=== PATIENT | male | born 2005 | race Caucasian/White ===

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

== ENCOUNTER 2024-01-28 11:17 | Outpatient (AMB) | payer OTHER, SELFPAY ==
--- NOTE | 2024-01-28 11:41 | A.OFFVIS_ITS ---
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 He was at [facility] and felt pain. X rays updated in the office today. 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. He describes a valgus twisting injury and a lateral patellar dislocation that required manual relocation. He has been unable to walk or move his knee normally since then. Physical Exam Extrem Other: Large left knee hemearthrosis with ttp over MPFL 5-40 deg motion Results Reviewed Results Reviewed: I personally reviewed relevant radiographs. Left knee effusion. Otherwise unremarkable radiographs Assessment & Plan Assessment & Plan (1) Closed patellar dislocation: Code(s): S83.006A - Unspecified dislocation of unspecified patella, initial encounter Plan: This is a 18 yo with a hemearthrosis s/p lateral patellar dislocation. I put him into a playmaker locked in extension and ordered PT. I recommend NSAIDS (800 mg ibuprofen) and an MRI. We will follow up accordingly. Orders: Orders XR knee standing BI Today M25.569 - Pain in unspecified knee MR knee LT wo con Today S83.006A - Unspecified dislocation of unspecified patella, initial encounter PT Evaluation and Treatment Today S83.006A - Unspecified dislocation of unspecified patella, initial encounter Coding Level of Care Code New Pt Level 4 (27005) Diagnoses Closed patellar dislocation S83.006A
== END 2024-01-28 12:30 | disposition home or self-care (01) ==
LOC: HO.HOS 11:17
PROVIDERS: PCP Pediatrics; Visit Provider Orthopaedic Surgery
DX: S83.002A Unspecified subluxation of left patella, initial encounter (principal)
CPT/HCPCS: 99203

== ENCOUNTER 2024-01-28 11:17 | Outpatient (REF) | payer OTHER, BC, SELFPAY ==
--- NOTE | ~2024-01-28 | XR_ITS ---
EXAMINATION: Left knee series including upright view of both knees. CLINICAL INFORMATION: Pain in the knee. COMPARISON: None available. TECHNIQUE: 3 views of the left knee including AP upright of both knees. FINDINGS: Left knee: The bones joints and soft tissues are normal without effusion. Right knee limited: The bones and visualized joints and soft tissues are normal.. XR/XR knee LT 3V IMPRESSION: LEFT KNEE: Normal. RIGHT KNEE limited: Normal.
== END 2024-01-28 11:18 | disposition home or self-care (01) ==
LOC: HO.HOSX 11:17
PROVIDERS: PCP Pediatrics; Visit Provider Orthopaedic Surgery
DX: S83.002A Unspecified subluxation of left patella, initial encounter (principal)
CPT/HCPCS: 73562

== ENCOUNTER 2024-02-16 12:54 | Outpatient (REF) | payer OTHER, SELFPAY ==
--- NOTE | ~2024-02-16 | MR_ITS ---
EXAMINATION: MR KNEE WITHOUT CONTRAST, LEFT CLINICAL INFORMATION: Left knee pain. Patellar dislocation. COMPARISON: Left knee radiographs dated 01/28/2024. TECHNIQUE: MRI of the knee without contrast was performed using routine sequences on a high-field scanner. FINDINGS: MENISCI: Medial Meniscus: Intact Lateral Meniscus: Intact LIGAMENTS: Cruciate: Intact Collateral: Heterogeneity and edema along the anterior aspect of the medial patellofemoral ligament, consistent with acute grade 2 sprain/partial tear. Intact fibular collateral ligament. EXTENSOR MECHANISM: Diffuse heterogeneity and irregularity throughout the medial patellofemoral ligament with thin ligament fibers remaining intact, consistent with acute grade 2 sprain/partial tear. Intact quadriceps and patellar tendons. TT-TG distance within normal limits. No patella jaylan. Patella currently well seated within the trochlea. Edema within the superolateral aspect of Hoffa's fat pad, which can be seen in the setting of patellar tendon lateral femoral condyle friction syndrome. ARTICULAR CARTILAGE/BONE: Patellofemoral Compartment: Cortical flattening at the medial border of the patella measuring up to 2 cm in craniocaudal dimension with underlying marrow edema, consistent with an impaction fracture. Intact articular cartilage. Marrow edema at the anterolateral aspect the lateral femoral condyle, consistent with osseous contusion. Medial Compartment: Intact articular cartilage. Focal marrow edema at the medial aspect of the medial femoral condyle, consistent with an osseous contusion. Lateral Compartment: Intact articular cartilage. JOINT FLUID AND BURSAE: Small joint effusion and trace Vargas's cyst. Fluid and edema within the pes anserine bursa which may be reactive to the adjacent pathology or indicate mild bursitis. MR/MR knee LT wo con IMPRESSION: 1. Findings consistent with prior lateral patellar dislocation including an impaction fracture at the medial border of the patella as well as osseous contusions at the anterolateral aspect of the lateral femoral condyle and medial aspect of the medial femoral condyle. Patella currently well seated within the trochlea. 2. Acute grade 2 sprain/partial tears of the medial patellofemoral and medial collateral ligaments. 3. Edema within the superolateral aspect of Hoffa's fat pad, which can be seen in the setting of patellar tendon lateral femoral condyle friction syndrome. 4. Small joint effusion and trace Vargas's cyst. Fluid and edema within the pes anserine bursa, which may be reactive to the adjacent pathology or indicate mild bursitis.
== END 2024-02-16 12:55 | disposition home or self-care (01) ==
LOC: HO.MRI 12:54
PROVIDERS: PCP Pediatrics; Visit Provider Orthopaedic Surgery
DX: M25.562 Pain in left knee (principal); S83.006A Unspecified dislocation of unspecified patella, initial encounter; X58.XXXA Exposure to other specified factors, initial encounter; Y93.9 Activity, unspecified; Y92.9 Unspecified place or not applicable; Y99.9 Unspecified external cause status
CPT/HCPCS: 73721

== ENCOUNTER 2024-02-16 14:19 | Outpatient (AMB) | payer OTHER, SELFPAY ==
--- NOTE | 2024-02-16 14:20 | A.OFFVIS_ITS ---
Intake Visit Reasons: ov- left knee pain Intake Note: John is a 18 year old male who presents today for a follow up on his left knee pain, DOI 01/27/24. Allergies No Known Allergies Allergy (Verified 08/22/23 09:31) HPI HPI ov- left knee pain: Details: John is feeling better now 3 weeks s/p patellar dislocation. He has not started PT yet. Physical Exam Extrem Other: lateral femoral condyle ttp mild effusion minimal apprehension stable kristie's Results Reviewed Results Reviewed: I personally reviewed the MR images. There is bony sequelae from a prior lateral patellar dislocation without loose b cheryl or cartilage defect. There is a partial tear of the MPFL. Insall/Salvati 1.54 Assessment & Plan Assessment & Plan (1) Closed patellar dislocation: Code(s): S83.006A - Unspecified dislocation of unspecified patella, initial encounter Category: Medical Plan: S/p Patellar dislocation, first time with mild Patella [place]. PT and a lateral bolster brace. Coding Level of Care Code Est Pt Level 3 (68789) Diagnoses Closed patellar dislocation S83.006A
== END 2024-02-16 15:19 | disposition home or self-care (01) ==
LOC: HO.HOS 14:19
PROVIDERS: PCP Pediatrics; Visit Provider Orthopaedic Surgery
DX: S83.005S Unspecified dislocation of left patella, sequela (principal)
CPT/HCPCS: 99213

== ENCOUNTER 2024-03-13 13:10 | Outpatient (AMB) | payer OTHER, SELFPAY ==
--- NOTE | 2024-03-13 13:11 | MHC.OFFVIS ---
Vital Signs 03/13/24 13:13 Height 5 ft 10 in Weight 154 lb BMI 22.1 Intake Visit Reasons: OV - Left Knee Intake Note: John is a 18 year old male who presents today for a follow up of his left knee, S/p Patellar dislocation 01/27/24, first time with mild Patella [place]. PT and a lateral bolster brace. Allergies No Known Allergies Allergy (Verified 08/22/23 09:31) HPI HPI OV - Left Knee: Details: 6 weeks s/p patellar dislocation. He is doing well with no complaints. He is jogging and not wearing brace. Physical Exam Vital Signs: BMI result Body Mass Index 22.1 Extrem Other: Left knee with full painless ROM and no effusion. No patellar instability or apprehension. Assessment & Plan Assessment & Plan (1) Closed patellar dislocation: Code(s): S83.006A - Unspecified dislocation of unspecified patella, initial encounter Category: Medical Plan: John may return to nl activity. I explained the risks associated with multiple dislocations but he does not appear to be unstable. [facility] the [facility]. he can return to work without restrictions. Coding Level of Care Code Est Pt Level 3 (05720) Diagnoses Closed patellar dislocation S83.006A
[2024-03-13 13:13] VITALS: BMI 22.1
== END 2024-03-13 13:27 | disposition home or self-care (01) ==
LOC: HO.HOS 13:10
PROVIDERS: PCP Pediatrics; Visit Provider Orthopaedic Surgery
DX: S83.006A Unspecified dislocation of unspecified patella, initial encounter (principal)
CPT/HCPCS: 99213

== ENCOUNTER → 2024-03-13 13:10 | Outpatient (BNVA) | payer OTHER, SELFPAY | PROVIDERS: PCP Pediatrics; Visit Provider Orthopaedic Surgery ==

== ENCOUNTER 2024-12-26 13:24 | Outpatient (REF) | payer OTHER, SELFPAY ==
--- NOTE | ~2024-12-26 | US_ITS ---
CLINICAL HISTORY: ELEVATED TESTOSTERONE US Scrotum with Doppler Comparison: None Findings: Right testicle normal echotexture, 4.3 x 2.4 x 2.9 cm. Left testicle normal echotexture, 4.7 x 2.5 x 3.4 cm. Color Doppler and arterial/venous spectral tracings of both testicles within normal limits. 4 mm right epididymal head cysts noted. Epididymides are otherwise unremarkable. No varicoceles. No hydroceles. IMPRESSION: Normal scrotal ultrasound. No evidence of torsion. This document has been electronically signed by: Chong Atkins MD, PHD on 12/28/2024 01:55:32
--- OUTSIDE RECORDS SUMMARY | 2024-12-26 16:49 | XMS_ITS ---
Author Name [facility] Organization Unknown Results Test Name/Text Value Interpretation Date Range Source WBC #/area UrnS HPF 0 Normal [id number] - [facility] Hgb Ur Ql Strip 09-18 Abnormal [id number] - [facility] Squamous UrnS Ql Micro 0 Normal [id number] - [facility] Ketones Ur Strip Negative Normal [id number] - [facility] Sp Gr Ur Strip 1.025 Normal [id number] 1.003 - 1.03 [facility] Bilirub Ur Ql Strip Negative Normal [id number] - [facility] Glucose Ur Ql Strip Negative Normal [id number] - [facility] pH Ur Strip 6 Normal [id number] 5 - 8 [facility] Clarity Ur Clear Normal [id number] [facility] C Hgb Ur Ql Strip Moderate Abnormal [id number] - [facility] Nitrite Ur Ql Strip Negative Normal [id number] - [facility] Urobilinogen Ur Strip 0.2E.U./dL Normal [id number] 0.2 - 1 [facility] Prot Ur Ql Strip Negative Normal [id number] - [facility] Leukocyte esterase Ur Ql Strip Negative Normal [id number] - [facility] Color Ur Yellow Normal [id number] [facility] POCT URINE AUTO LOT [id number] Normal [id number] [facility] Problems Problem Status Onset Date Problem Type Date of Resoluti on Source Suspected COVID-19 active 2021-09-26 ProblemAct [facility] Tonsil asymmetry active 2024-09-11 ProblemAct [facility] Gross hematuria active EncounterDiagnosisAct [facility] Ahsan hematuria active 2024-09-[address] [facility] Immunizations Vaccine Date Source Lot Number Status Pneumococcal conjugate PCV 13 2004 [facility] completed IPV 04/30/2008 [facility] completed DTaP 2004 [facility] completed DTaP 04/30/2008 [facility] completed MMR 05/15/2006 [facility] completed Hep A, ped/adol, 2 dose 04/15/2006 [facility] c ompleted Influenza, split virus, quad rivalent, preservative 08/26/2018 [facility] completed Hib, unspecified formulation 2004 [facility] completed HPV, unspecified formulation 05/04/2016 [facility] completed Influenza, split virus, quadrivalent, PF 08/22/2021 [facility] P [id number] completed Pneumococcal conjugate PCV 13 2004 [facility] completed Tdap 05/09/2015 [facility] completed DTaP 2004 [facility] completed COVID-19, mRNA, LNP-S, PF, 30 mcg/0.3 mL dose 02/22/2021 [facility] completed Hep B, unspecified formulation 2004 [facility] completed Influenza, split virus, quad rivalent, preservative 09/12/2012 [facility] completed Hib, unspecified formulation 05/06/2005 [facility] completed Hep B, unspecified formulation 04/06/2005 [facility] completed Hep A, unspecified formulation 03/28/2013 [facility] completed Hep B, unspecified formulation 2004 [facility] completed COVID-19, mRNA, LNP-S, PF, 30 mcg/0.3 mL dose 02/01/2021 [facility] completed MMR 04/30/2008 [facility] completed Influenza, split virus, quadrivalent, PF 07/02/2022 [facility] P [id number] completed Influenza, split virus, quad rivalent, preservative 09/01/2005 [facility] completed IPV 2004 [facility] completed Influenza, split virus, quad rivalent, preservative 07/26/2015 [facility] completed Influenza, split virus, quad rivalent, preservative 2004 [facility] completed Influenza, split virus, quad rivalent, preservative 09/05/2010 [facility] completed Hep B, unspecified formulation 2004 [facility] completed IPV 2004 [facility] completed HPV, unspecified formulation 05/09/2015 [facility] completed Hib, unspecified formulation 2004 [facility] completed DTaP 2004 [facility] completed MMR 05/06/2005 [facility] completed Pneumococcal conjugate PCV 13 12/03/2005 [facility] completed Hep A, ped/adol, 2 dose 12/03/2005 [facility] c ompleted meningococcal ACWY, unspecified formulation 05/09/2015 [facility] completed Pneumococcal conjugate PCV 13 07/01/2005 [facility] completed IPV 2004 [facility] completed DTaP 07/01/2005 [facility] completed varicella 04/30/2008 [facility] completed varicella 05/06/2005 [facility] completed meningococcal B, unspecified 05/01/2020 [facility] completed meningococcal ACWY, unspecified formulation 05/01/2020 [facility] completed Influenza, split virus, quad rivalent, preservative 08/20/2006 [facility] completed HPV, unspecified formulation 06/03/2017 [facility] completed Influenza, split virus, quad rivalent, preservative 2004 [facility] completed Influenza, split virus, quad rivalent, preservative 09/13/2009 [facility] completed
--- OUTSIDE RECORDS SUMMARY | 2024-12-26 16:49 | XMS_ITS | Data Portability ---
Author Organization [place] - [facility], [facility] Address [address] [place] [address] Assessment Encounter Date Assessment Date Assessment LastModified by Organization Details LastModified Time 11/09/2022 11/09/2022 17 yo male w/ fever, cough, congestion, and exudative pharyngitis. Rapid flu neg. Rapid strep neg. Cx pending. Covid PCR sent. Discussed sxs care. Discussed screening for mono - patient declined blood work today - discussed if strep cx neg/covid neg and still w/ ST would recommend eval. Pt in agreement w/ this. Orders in. Call w/ concerns. [email or web address] Not available 11/09/2022 18:22:03 08/11/2023 08/11/2023 LLL pneumonia and ? sinusitis- Symptomatic care.? ? ? Call if worse/ not improving or with any concerns- recheck 10 days if cough persists. sooner if worse or concern [email or web address] Not available 08/11/2023 16:42:40 03/16/2024 03/16/2024 19 yo here w/ 2 separate complaints including new L sided gynecomastia and recurrent episodes of ahsan hematuria following resp illnesses and significant physical exertion. Will check US of breast and obtain screening labs for various causes of hematuria. Will also refer to endo. F/u results by phone and consider nephrology/urol ogy consult depending on results. Not available 2024 09:10:00 05/25/2024 05/25/2024 19 yo here for appt to discuss tonsillar asymmetry x 1 month, but with continued concerns of gynecomastia and gross hematuria after intensive exercise. Previously referred to nephrology and endocrinology, but never heard from their offices to schedule. Will re-refer. Urine dip today positive for blood and protein. Had imaging of breast showing normal breast tissue. Molec strep checked for tonsil asymmetry and was negative. Discussed mono testing given tonsil finding and fatigue x 1 month, but patient would prefer to defer at this time. [place] and strep wouldn't explain asymmetric findings at any rate. Will refer to ENT to discuss need for additional workup/imaging. Regarding fatigue and anxiety around return to school, depression/anxi ety seem the most likely diagnoses, although with negative PHQ-9 and ALO-7 evals. Info provided for self-referral to therapist and encouraged pt to reach out to career counseling dept on return to school in hope it may help to have some idea about future plans. [email or web address] Not available 05/25/2024 18:12:37 08/24/2024 08/24/2024 19 yo meeting growth and dev milestones appropriately. Vaccines/AG given. RTC at 20 yoa for next WCC. Tonsil asymmetry - still slightly asymmetric and somewhat enlarged. Pt asymptomatic. Reports he may be interested in referral in the future. Ahsan hematuria - Was following with nephrology who planned to do addl US, serum and urine labs, but pt was lost to followup. Seriously encouraged patient to follow up with them again to complete workup due to seriousness of possible etiologies. Not available 09/11/2024 12:49:38 Plan of Treatment Reminders Order Date Submit Date Provider Last Modified By Organization Details Last Modified Time Details Appointments None recorded. Lab strep group A, DNA, swab 2023 024 [email or web address] 1 In-Office Order, Internal Use Only DO Not Attach Compendium DO Not Attach Compendium, Do Not Delete/merge, [id number] 4 16:45:34 urinalysis, dipstick 2023 024 Counts include 234 beds at the [facility], [address] [facility], [place], [address], 4 14:44:59 urinalysis, dipstick, reflex micro 2023 024 BURNS [facility] (Centralized Electronic Ordering - All Locations), Patient Can Go To The Location Of Their Choice, [id number] 20:06:13 urinalysis, dipstick 2023 Counts include 234 beds at the [facility], [address] [place] [address], [address], 12:06:56 peripheral blood smear 2023 024 [email or web address] [facility] (Centralized Electronic Ordering - All Locations), Patient Can Go To The Location Of Their Choice, 16:27:37 CMP, serum or plasma 2023 024 NATHAN [facility] (Centralized Electronic Ordering - All Locations), Patient Can Go To The Location Of Their Choice, 08:08:56 CK (creatine kinase), total, serum 2023 024 NATHAN [facility] (Centralized Electronic Ordering - All Locations), Patient Can Go To The Location Of Their Choice, 08:08:56 CBC w/ auto diff 2023 024 NATHAN [facility] (Centralized Electronic Ordering - All Locations), Patient Can Go To The Location Of Their Choice, 08:08:55 C3 + C4 (complement ), serum 2023 024 [email or web address] [facility] (Centralized Electronic Ordering - All Locations), Patient Can Go To The Location Of Their Choice, 16:23:25 urinalysis complete, reflex culture 2023 024 [email or web address] [facility] (Centralized Electronic Ordering - All Locations), Patient Can Go To The Location Of Their Choice, 14:28:46 rapid flu (A+B) 2022 023 Counts include 234 beds at the [facility], [address] [place] [address], [address], 3 10:52:49 SARS CoV 2 RNA (COVID-19), QL, brick pointer-PCR, respiratory specimen - Test Code 42912 CCOV19 2022 023 [email or web address] [facility], [address], [address], [place], [address], 3 10:51:44 culture, throat 2022 023 NATHAN In-Office Order, Internal Use Only DO Not Attach Compendium DO Not Attach Compendium, Do Not Delete/merge, [id number] 3 10:52:06 rapid strep group A, throat 2022 023 NATHAN [facility], [address] [facility], [place], [address], 3 10:52:29 mononucleos is, heterophile Ab, serum 2022 023 [email or web address] 8 [facility], [address], [address], [place], [address], 4 10:56:32 CBC w/ auto diff 2022 023 [email or web address] 8 [facility], [address], [address], [place], [address], 4 10:56:32 Referral otolaryngol ogist referral 2023 024 NATAHN Not available 5 05:00:52 endocrinolo gy referral 2023 024 NATHAN Not available 5 05:01:01 nephrologis t referral 2023 024 NATHAN Not available 5 05:01:01 endocrinolo gy referral 2023 024 [email or web address] Not available 4 12:27:34 Procedures None recorded. Surgeries None recorded. Imaging US, breast, unilateral - L sided breast tissue 2023 024 [email or web address] Not available 4 16:06:21 US, breast, bilateral 2023 024 NATHAN Not available 11:28:22 Medication Orders cefprozil 500 mg tablet 2022 024 NATHAN [id number], [address], [place], [address], 11:06:48 Patient TargetsNo targets recorded. Patient Instructions Encounter Date Encounter Id Patient Instructions Last Modified By Organization Details Last Modified Time 08/24/2024 [id number] patient health questionnaire depression assessment* [email or web address] Not available 08/24/2024 14:55:59 blood in the urine: care instructions [email or web address] Not available 09/11/2024 12:49:37 5210 program - 5 fruits & veggies [email or web address] Not available 08/24/2024 14:56:00 5210 program - 1 hour of exercise [email or web address] Not available 08/24/2024 14:55:59 immunization: wh at you need to know [email or web address] Not available 08/24/2024 14:56:00 We have discusse d that it is now time for the patient to work on selecting a new adult medicine provider. [email or web address] Not available 08/24/2024 08:00:22 Reason for Referral Endocrinology Referral for G ynecomastia Referring Physician: Sukumar Clinton, Pediatric Medicine, Encounter Date: 03/16/2024 Endocrinology Referral for G ynecomastia Referring Physician: Sukumar Clinton Pediatric Medicine, Encounter Date: 05/25/2024 Cleaning Attendant Referral for Re current ahsan hematuria Referring Physician: Sukumar Clinton Pediatric Medicine, Encounter Date: 05/25/2024 Mapping Technician Referral fo r Tonsil asymmetry Referring Physician: Sukumar Clinton Pediatric Medicine, Encounter Date: 05/25/2024 Results Created Date Observation Date Name Description Value Unit Range Abnormal Flag Note LastModifiedBy Organization Detail LastModifiedTime 11/09/1911/09/2022 COVID -19 (CLARITZAE Piter CORON AVIRU S) PCR covid-19 PCR specimen source NASAL Not Available [facility] (Centralized Electronic Ordering - All Locations) Patient Can Go To The Location Of Their Choice, [facility] 11/10/2022 10:13:46 11/09/1911/10/2022 COVID -19 (NOVE L CORON AVIRU S) PCR covid-19 PCR result (neg) NEGAT BETHEL 2019- novel Coron aviru s (2018nCoV ) not detec dorys by real- time RT-PC R. Note: If clini martha suspi cion for COVID -19 is high, ezra nue to maint ain preca ution s and consi claritza repea t testi ng. Resul t repor dorys to the COUNT INCLUDES THE [facility]. To preve nt error s in diagn osis, test resul ts shoul d be inter prete d in the darshana xt of clini martha findi ngs and other labor atory data. Rare polym orphi sms exist that could lead to false -nega tive or false -posi tive resul ts. If resul ts obtai luz marina do not match the clini martha findi ngs, addit ional testi ng shoul d be consi dered . This test has been autho rized by the FDA under an Emerg ency Use Autho rizat ion (EUA) for use by autho rized labor atori es. Testi ng perfo rmed by real time PCR utili [facility] MYRIAM 6800 SARS- CoV-2 test. Not Available [facility] (Centralized Electronic Ordering - All Locations) Patient Can Go To The Location Of Their Choice, [facility] 11/10/2022 10:13:46 11/09/1911/09/2022 rapid strep group A, throa t Rapid Strep negati ve Not Available [facility] [address] [place] [address], [place], [address], 11/09/2022 10:27:56 11/09/19 23 11/09/2022 cultu re, throa t Result 24 HR negati ve Not Available In-Office Order Internal Use Only DO Not Attach Compendium DO Not Attach Compendium, Do Not Delete/merge, [id number] 11/09/2022 10:27:56 11/09/1911/09/2022 cultu re, throa t Result 48 HR negati ve Not Available In-Office Order Internal Use Only DO Not Attach Compendium DO Not Attach Compendium, Do Not Delete/merge, [id number] 11/09/2022 10:27:56 11/09/19 23 11/09/2022 rapid flu (A+B) Rapid Flu A negati ve Not Available [facility] [address] [place] [address], [address], 11/09/2022 10:27:49 11/09/19 23 11/09/2022 rapid flu (A+B) Rapid Flu B negati ve Not Available [facility] [address] [place], [address], 11/09/2022 10:27:49 03/16/20 24 03/17/2024 CBC WITH DIFFE RENTI AL/PL ATELE T WBC 5.8 x10e3 /uL 3.4-10 .8 Not Available [facility] ([facility]) [address], [place], [place], [address], 03/17/2024 08:08:55 03/16/20 24 03/17/2024 CBC WITH DIFFE RENTI AL/PL ATELE T RBC 5.42 x10e6 /uL 4.14-5 .80 Not Available [facility] ([facility]) [address], [place], [place], [address], 03/17/2024 08:08:55 03/16/20 24 03/17/2024 CBC WITH DIFFE RENTI AL/PL ATELE T hemoglobin 16.3 g/dL 13.0-1 7.7 Not Available [facility] ([facility]) [address], [place], [place], [address], 03/17/2024 08:08:55 03/16/20 24 03/17/2024 CBC WITH DIFFE RENTI AL/PL ATELE T hematocrit 48.8 % 37.5-5 1.0 Not Available [facility] ([facility]) [address], [place], [place], [address], 03/17/2024 08:08:55 03/16/20 24 03/17/2024 CBC WITH DIFFE RENTI AL/PL ATELE T MCV 90 fL 79-97 Not Available [facility] ([facility]) [address], [place], [place], [address], 03/17/2024 08:08:55 03/16/20 24 03/17/2024 CBC WITH DIFFE RENTI AL/PL ATELE T MCH 30.1 pg 26.6-3 3.0 Not Available [facility] ([facility]) [address], [place], [place], [address], 03/17/2024 08:08:55 03/16/20 24 03/17/2024 CBC WITH DIFFE RENTI AL/PL ATELE T MCHC 33.4 g/dL 31.5-3 5.7 Not Available [facility] ([facility]) [address], [place], [place], [address], 03/17/2024 08:08:55 03/16/2003/17/2024 CBC WITH DIFFE RENTI AL/PL ATELE T RDW 12.0 % 11.6-1 5.4 Not Available [facility] ([facility]) [address], [place], [place], [address], 03/17/2024 08:08:55 03/16/20 24 03/17/2024 CBC WITH DIFFE RENTI AL/PL ATELE T platelets 253 x10e3 /uL 150-45 0 Not Available [facility] ([facility]) [address], [place], [place], [address], 03/17/2024 08:08:55 03/16/20 24 03/17/2024 CBC WITH DIFFE RENTI AL/PL ATELE T neutrophils 56 % not estab. Not Available [facility] ([facility]) [address], [place], [place], [address], 03/17/2024 08:08:55 03/16/20 24 03/17/2024 CBC WITH DIFFE RENTI AL/PL ATELE T lymphs 31 % not estab. Not Available [facility] ([facility]) [address], [place], [place], [address], 03/17/2024 08:08:55 03/16/20 24 03/17/2024 CBC WITH DIFFE RENTI AL/PL ATELE T monocytes 10 % not estab. Not Available [facility] ([facility]) [address], [place], [place], [address], 03/17/2024 08:08:55 03/16/20 24 03/17/2024 CBC WITH DIFFE RENTI AL/PL ATELE T eos 2 % not estab. Not Available [facility] ([facility]) [address], [place], [place], [address], 03/17/2024 08:08:55 03/16/20 24 03/17/2024 CBC WITH DIFFE RENTI AL/PL ATELE T basos 1 % not estab. Not Available [facility] ([facility]) [address], [place], [place], [address], 03/17/2024 08:08:55 03/16/2003/17/2024 CBC WITH DIFFE RENTI AL/PL ATELE T immature cells SPECIAL LIBRARY LIBRARIAN Not Available [facility] ([facility]) [address], [place], [place], [address], 03/17/2024 08:08:55 03/16/20 24 03/17/2024 CBC WITH DIFFE RENTI AL/PL ATELE T neutrophils (absolute) 3.3 x10e3 /uL 1.4-7. 0 Not Available [facility] ([facility]) [address] [place], [address], 03/17/2024 08:08:55 03/16/20 24 03/17/2024 CBC WITH DIFFE RENTI AL/PL ATELE T lymphs (absolute) 1.8 x10e3 /uL 0.7-3. 1 Not Available [facility] ([facility]) [address], [place], [place], [address], 03/17/2024 08:08:55 03/16/20 24 03/17/2024 CBC WITH DIFFE RENTI AL/PL ATELE T monocytes(ab solute) 0.6 x10e3 /uL 0.1-0. 9 Not Available [facility] ([facility]) [address], [place], [place], [address], 03/17/2024 08:08:55 03/16/20 24 03/17/2024 CBC WITH DIFFE RENTI AL/PL ATELE T eos (absolute) 0.1 x10e3 /uL 0.0-0. 4 Not Available [facility] ([facility]) [address], [place], [place], [address], 03/17/2024 08:08:55 03/16/20 24 03/17/2024 CBC WITH DIFFE RENTI AL/PL ATELE T baso (absolute) 0.1 x10e3 /uL 0.0-0. 2 Not Available [facility] ([facility]) [address], [place], [place], [address], 03/17/2024 08:08:55 03/16/20 24 03/17/2024 CBC WITH DIFFE RENTI AL/PL ATELE T immature granulocytes 0 % not estab. Not Available [facility] ([facility]) [address] [place], [address], 03/17/2024 08:08:55 03/16/20 24 03/17/2024 CBC WITH DIFFE RENTI AL/PL ATELE T immature grans (abs) 0.0 x10e3 /uL 0.0-0. 1 Not Available [facility] ([facility]) [address] [place], [address], 03/17/2024 08:08:55 03/16/20 24 03/17/2024 CBC WITH DIFFE RENTI AL/PL ATELE T NRBC SPECIAL LIBRARY LIBRARIAN Not Available [facility] ([facility]) [address], [place], [place], [address], 03/17/2024 08:08:55 03/16/20 24 03/17/2024 CBC WITH DIFFE RENTI AL/PL ATELE T hematology comments: SPECIAL LIBRARY LIBRARIAN Not Available [facility] ([facility]) [address], [place], [place], [address], 03/17/2024 08:08:55 03/16/20 24 03/17/2024 COMP. METAB OLIC PANEL (14) glucose 88 mg/dL 70-99 Not Available [facility] ([facility]) [address], [place], [address], 03/17/2024 08:08:56 03/16/20 24 03/17/2024 COMP. METAB OLIC PANEL (14) BUN 9 mg/dL 6-20 Not Available [facility] ([facility]) [address] [place], [address], 03/17/2024 08:08:56 03/16/20 24 03/17/2024 COMP. METAB OLIC PANEL (14) creatinine 0.95 mg/dL 0.76-1 .27 Not Available [facility] ([facility]) [address], [place], [place], [address], 03/17/2024 08:08:56 03/16/20 24 03/17/2024 COMP. METAB OLIC PANEL (14) BUN/creatini ne ratio 9 9-20 Not Available [facility] ([facility]) [address] [place], [address], 03/17/2024 08:08:56 03/16/20 24 03/17/2024 COMP. METAB OLIC PANEL (14) sodium 140 mmol/ L 134-14 4 Not Available [facility] ([facility]) [address] [place], [address], 03/17/2024 08:08:56 03/16/20 24 03/17/2024 COMP. METAB OLIC PANEL (14) potassium 4.4 mmol/ L 3.5-5. 2 Not Available [facility] ([facility]) [address] [place] [place], [address], 03/17/2024 08:08:56 03/16/20 24 03/17/2024 COMP. METAB OLIC PANEL (14) chloride 103 mmol/ L 96-106 Not Available [facility] ([facility]) [address] [place] [place], [address], 03/17/2024 08:08:56 03/16/20 24 03/17/2024 COMP. METAB OLIC PANEL (14) carbon dioxide, total 24 mmol/ L 20-29 Not Available [facility] ([facility]) [address] [place] [place], [address], 03/17/2024 08:08:56 03/16/20 24 03/17/2024 COMP. METAB OLIC PANEL (14) calcium 9.4 mg/dL 8.7-10 .2 Not Available [facility] ([facility]) [address] [place], [address], 03/17/2024 08:08:56 03/16/20 24 03/17/2024 COMP. METAB OLIC PANEL (14) protein, total 6.3 g/dL 6.0-8. 5 Not Available [facility] ([facility]) [address] [place], [address], 03/17/2024 08:08:56 03/16/20 24 03/17/2024 COMP. METAB OLIC PANEL (14) albumin 4.4 g/dL 4.3-5. 2 Not Available [facility] ([facility]) [address] [place], [address], 03/17/2024 08:08:56 03/16/20 24 03/17/2024 COMP. METAB OLIC PANEL (14) globulin, total 1.9 g/dL 1.5-4. 5 Not Available [facility] ([facility]) [address] [place], [address], 03/17/2024 08:08:56 03/16/20 24 03/17/2024 COMP. METAB OLIC PANEL (14) A/G ratio 2.3 1.2-2. 2 above high normal Not Available [facility] ([facility]) [address], [place], [address], 03/17/2024 08:08:56 03/16/20 24 03/17/2024 COMP. METAB OLIC PANEL (14) bilirubin, total 0.5 mg/dL 0.0-1. 2 Not Available [facility] ([facility]) [address], [place], [place], [address], 03/17/2024 08:08:56 03/16/20 24 03/17/2024 COMP. METAB OLIC PANEL (14) alkaline phosphatase 51 IU/L 51-125 Not Available [facility] ([facility]) [address], [place], [address], 03/17/2024 08:08:56 03/16/20 24 03/17/2024 COMP. METAB OLIC PANEL (14) AST (SGOT) 23 IU/L 0-40 Not Available [facility] ([facility]) [address], [place], [address], 03/17/2024 08:08:56 03/16/20 24 03/17/2024 COMP. METAB OLIC PANEL (14) ALT (SGPT) 20 IU/L 0-44 Not Available [facility] ([facility]) [address], [place], [address], 03/17/2024 08:08:56 03/16/20 24 03/17/2024 CREAT INE KINAS E,TOT AL creatine kinase,total 412 U/L 49-439 Not Available [facility] ([facility]) [address], [place], [place], [address], 03/17/2024 08:08:56 03/16/20 24 03/17/2024 UA WITH CULTU RE REFLE X specific gravity 1.017 1.005- 1.030 Not Available [facility] ([facility]) [address], [place], [place], [address], 03/17/2024 14:06:45 03/16/20 24 03/17/2024 UA WITH CULTU RE REFLE X pH 7.0 5.0-7. 5 Not Available [facility] ([facility]) [address], [place], [place], [address], 03/17/2024 14:06:45 03/16/20 24 03/17/2024 UA WITH CULTU RE REFLE X urine-color Yellow yellow Not Available [facility] ([facility]) [address], [place], [place], [address], 03/17/2024 14:06:45 03/16/20 24 03/17/2024 UA WITH CULTU RE REFLE X appearance Clear clear Not Available [facility] ([facility]) [address] [place], [address], 03/17/2024 14:06:45 03/16/20 24 03/17/2024 UA WITH CULTU RE REFLE X WBC esterase Negati ve negati ve Not Available [facility] ([facility]) [address] [place], [address], 03/17/2024 14:06:45 03/16/20 24 03/17/2024 UA WITH CULTU RE REFLE X protein Negati ve negati ve/tra ce Not Available [facility] ([facility]) [address], [place], [place], [address], 03/17/2024 14:06:45 03/16/20 24 03/17/2024 UA WITH CULTU RE REFLE X glucose Negati ve negati ve Not Available [facility] ([facility]) [address], [place], [place], [address], 03/17/2024 14:06:45 03/16/20 24 03/17/2024 UA WITH CULTU RE REFLE X ketones Negati ve negati ve Not Available [facility] ([facility]) [address], [place], [place], [address], 03/17/2024 14:06:45 03/16/20 24 03/17/2024 UA WITH CULTU RE REFLE X occult blood Negati ve negati ve Not Available [facility] ([facility]) [address], [place], [place], [address], 03/17/2024 14:06:45 03/16/20 24 03/17/2024 UA WITH CULTU RE REFLE X bilirubin Negati ve negati ve Not Available [facility] ([facility]) [address], [place], [place], [address], 03/17/2024 14:06:45 03/16/20 24 03/17/2024 UA WITH CULTU RE REFLE X urobilinogen ,semi-qn 0.2 mg/dL 0.2-1. 0 Not Available [facility] ([facility]) [address], [place], [place], [address], 03/17/2024 14:06:45 03/16/20 24 03/17/2024 UA WITH CULTU RE REFLE X nitrite, urine Negati ve negati ve Not Available [facility] ([facility]) [address] [place], [address], 03/17/2024 14:06:45 03/16/20 24 03/17/2024 UA WITH CULTU RE REFLE X microscopic examination Commen t Micro scopi c not indic ated and not perfo rmed. Not Available [facility] ([facility]) [address], [place], [place], [address], 03/17/2024 14:06:45 03/16/20 24 03/17/2024 UA WITH CULTU RE REFLE X urinalysis reflex Commen t This speci men will not refle x to a Urine Cultu re. Not Available [facility] ([facility]) [address], [place], [place], [address], 03/17/2024 14:06:45 03/16/20 24 03/16/2024 urina lysis , dipst ick Glucose Negati ve Not Available [facility] [address] [place] [address], [address], 03/16/2024 11:53:31 03/16/20 24 03/16/2024 urina lysis , dipst ick Bilirubin Negati ve Not Available [facility] [address] [place], [address], 03/16/2024 11:53:31 03/16/20 24 03/16/2024 urina lysis , dipst ick Ketone Negati ve Not Available [facility] [address] [place] [address], [address], 03/16/2024 11:53:31 03/16/20 24 03/16/2024 urina lysis , dipst ick Specific [place] 1.020 Not Available [facility] [address] [place] [address], [address], 03/16/2024 11:53:31 03/16/20 24 03/16/2024 urina lysis , dipst ick Blood Trace Not Available [facility] [address] [place] [address], [address], 03/16/2024 11:53:31 03/16/20 24 03/16/2024 urina lysis , dipst ick pH 7.0 Not Available [facility] [address] [place] [address], [address], 03/16/2024 11:53:31 03/16/20 24 03/16/2024 urina lysis , dipst ick Protein Negati ve Not Available [facility] [address] [place] [address], [address], 03/16/2024 11:53:31 03/16/20 24 03/16/2024 urina lysis , dipst ick Urobilinogen .2 Not Available [facility] [address] [place] [address], [address], 03/16/2024 11:53:31 03/16/20 24 03/16/2024 urina lysis , dipst ick Nitrite negati ve Not Available [facility] [address] [place] [address], [address], 03/16/2024 11:53:31 03/16/20 24 03/16/2024 urina lysis , dipst ick Leukocytes Negati ve Not Available [facility] [address] [place] [address], [address], 03/16/2024 11:53:31 05/25/20 24 05/26/2024 URINA LYSIS , ROUTI NE W/RFX specific gravity 1.020 1.005- 1.030 normal Not Available [facility] ([facility]) [address], [place], [place], [address], 05/29/2024 20:06:13 05/25/20 24 05/26/2024 URINA LYSIS , ROUTI NE W/RFX pH 7.0 5.0-7. 5 normal Not Available [facility] ([facility]) [address], [place], [place], [address], 05/29/2024 20:06:13 05/25/20 24 05/26/2024 URINA LYSIS , ROUTI NE W/RFX urine-color Yellow yellow Not Available [facility] ([facility]) [address], [place], [place], [address], 05/29/2024 20:06:13 05/25/20 24 05/26/2024 URINA LYSIS , ROUTI NE W/RFX appearance Cloudy clear abnormal Not Available [facility] ([facility]) [address], [place], [place], [address], 05/29/2024 20:06:13 05/25/20 24 05/26/2024 URINA LYSIS , ROUTI NE W/RFX WBC esterase Negati ve negati ve Not Available [facility] ([facility]) [address], [place], [place], [address], 05/29/2024 20:06:13 05/25/20 24 05/26/2024 URINA LYSIS , ROUTI NE W/RFX protein 1+ negati ve/tra ce abnormal Not Available [facility] ([facility]) [address], [place], [place], [address], 05/29/2024 20:06:13 05/25/20 24 05/26/2024 URINA LYSIS , ROUTI NE W/RFX glucose Negati ve negati ve Not Available [facility] ([facility]) [address] [place], [address], 05/29/2024 20:06:13 05/25/20 24 05/26/2024 URINA LYSIS , ROUTI NE W/RFX ketones Negati ve negati ve Not Available [facility] ([facility]) [address] [place], [address], 05/29/2024 20:06:13 05/25/20 24 05/26/2024 URINA LYSIS , ROUTI NE W/RFX occult blood 3+ negati ve abnormal Not Available [facility] ([facility]) [address], [place], [place], [address], 05/29/2024 20:06:13 05/25/20 24 05/26/2024 URINA LYSIS , ROUTI NE W/RFX bilirubin Negati ve negati ve Not Available [facility] ([facility]) [address], [place], [place], [address], 05/29/2024 20:06:13 05/25/20 24 05/26/2024 URINA LYSIS , ROUTI NE W/RFX urobilinogen ,semi-qn 1.0 mg/dL 0.2-1. 0 normal Not Available [facility] ([facility]) [address], [place], [place], [address], 05/29/2024 20:06:13 05/25/20 24 05/26/2024 URINA LYSIS , ROUTI NE W/RFX nitrite, urine Negati ve negati ve Not Available [facility] ([facility]) [address] [place], [address], 05/29/2024 20:06:13 05/25/20 24 05/26/2024 URINA LYSIS , ROUTI NE W/RFX microscopic examination See below: Micro scopi c was indic ated and was perfo rmed. Not Available [facility] ([facility]) [address], [place], [place], [address], 05/29/2024 20:06:13 05/25/20 24 05/26/2024 URINA LYSIS , ROUTI NE W/RFX WBC 6-10 /hpf 0 - 5 abnormal Not Available [facility] ([facility]) [address], [place], [place], [address], 05/29/2024 20:06:13 05/25/20 24 05/26/2024 URINA LYSIS , ROUTI NE W/RFX RBC >30 /hpf 0 - 2 abnormal Not Available [facility] ([facility]) [address], [place], [place], [address], 05/29/2024 20:06:13 05/25/20 24 05/26/2024 URINA LYSIS , ROUTI NE W/RFX epithelial cells (non renal) 0-10 /hpf 0 - 10 Not Available [facility] ([facility]) [address], [place], [place], [address], 05/29/2024 20:06:13 05/25/20 24 05/26/2024 URINA LYSIS , ROUTI NE W/RFX epithelial cells (renal) SPECIAL LIBRARY LIBRARIAN Not Available [facility] ([facility]) [address], [place], [place], [address], 05/29/2024 20:06:13 05/25/20 24 05/26/2024 URINA LYSIS , ROUTI NE W/RFX casts None seen /lpf none seen Not Available [facility] ([facility]) [address], [place], [place], [address], 05/29/2024 20:06:13 05/25/20 24 05/26/2024 URINA LYSIS , ROUTI NE W/RFX cast type SPECIAL LIBRARY LIBRARIAN Not Available [facility] ([facility]) [address], [place], [place], [address], 05/29/2024 20:06:13 05/25/20 24 05/26/2024 URINA LYSIS , ROUTI NE W/RFX crystals Presen t n/a abnormal Not Available [facility] ([facility]) [address], [place], [place], [address], 05/29/2024 20:06:13 05/25/20 24 05/26/2024 URINA LYSIS , ROUTI NE W/RFX crystal type Calciu m Oxalat e n/a Not Available [facility] ([facility]) [address], [place], [place], [address], 05/29/2024 20:06:13 05/25/20 24 05/26/2024 URINA LYSIS , ROUTI NE W/RFX mucus threads SPECIAL [employer]RARY LIBRARIAN Not Available [facility] ([facility]) [address], [place], [place], [address], 05/29/2024 20:06:13 05/25/20 24 05/26/2024 URINA LYSIS , ROUTI NE W/RFX bacteria None seen none seen/f ew Not Available [facility] ([facility]) [address], [place], [place], [address], 05/29/2024 20:06:13 05/25/20 24 05/26/2024 URINA LYSIS , ROUTI NE W/RFX yeast SPECIAL LIBRARY LIBRARIAN Not Available [facility] ([facility]) [address], [place], [place], [address], 05/29/2024 20:06:13 05/25/20 24 05/26/2024 URINA LYSIS , ROUTI NE W/RFX trichomonas SPECIAL LIBRARY LIBRARIAN Not Available [facility] ([facility]) [address], [place], [place], [address], 05/29/2024 20:06:13 05/25/20 24 05/26/2024 URINA LYSIS , ROUTI NE W/RFX comment SPECIAL LIBRARY LIBRARIAN Not Available [facility] ([facility]) [address], [place], [place], [address], 05/29/2024 20:06:13 05/25/20 24 05/29/2024 URINA LYSIS , ROUTI NE W/RFX creatinine, urine 199.7 mg/dL not estab. normal Not Available [facility] ([facility]) [address], [place], [place], [address], 05/29/2024 20:06:13 05/25/20 24 05/29/2024 URINA LYSIS , ROUTI NE W/RFX protein,tota l,urine 46.9 mg/dL not estab. normal Not Available [facility] ([facility]) [address], [place], [place], [address], 05/29/2024 20:06:13 05/25/20 24 05/29/2024 URINA LYSIS , ROUTI NE W/RFX protein/crea t ratio 235 mg/g_ creat 0-200 above high normal Not Available [facility] ([facility]) [address], [place], [place], [address], 05/29/2024 20:06:13 05/25/20 24 05/26/2024 NTI URINE TUBE (BAILEY ) nti urine tube (bailey) Sis Resendez r, The requi sitio n we recei sunshine for the above patie nt has no test indic ated on the reque st form for one or more of the speci mens submi tted. [place] at[place] s requi res a writt en and osbaldo d reque st be forwa rded to the testi ng labor atory follo wing the verba l order of a labor atory test. Pleas e compl ete the follo wing and fax to [phone] to exped ite testi ng. Requi red test name( s)___ ___ Requi red test emma abbasi(s)_ ___ Physi franklin signa ture_ __ Date_ __ Diagn osis Code: __ In order to maint ain sampl e integ rity, sampl es will be store d for two to seven days from the date of recei pt. A urine cultu re trans port was recei sunshine with no test indic ated. If testi ng is requi red on this speci men, pleas e conta ct the [facility] Clien t Inqui ry/Te chnic al Servi lisa Depar tment to obtai n a Reque st for Writt en Autho rizat ion Form. Not Available [facility] ([facility]) [address], [place], [place], [address], 05/29/2024 20:06:14 05/25/20 24 05/25/2024 strep group A, DNA, swab Strep ID NOW negati ve Not Available In-Office Order Internal Use Only DO Not Attach Compendium DO Not Attach Compendium, Do Not Delete/merge, [id number] 05/25/2024 14:45:34 05/25/20 24 05/25/2024 urina lysis , dipst ick Leukocytes Negati ve Not Available [facility] [address] [place], [address], 05/25/2024 14:33:45 05/25/20 24 05/25/2024 urina lysis , dipst ick Nitrite negati ve Not Available [facility] [address] [place], [address], 05/25/2024 14:33:45 05/25/20 24 05/25/2024 urina lysis , dipst ick Urobilinogen Negati ve Not Available [facility] [address] [place] [address], [address], 05/25/2024 14:33:45 05/25/20 24 05/25/2024 urina lysis , dipst ick Protein 1+ Not Available [facility] [address] [place] [address], [address], 05/25/2024 14:33:45 05/25/20 24 05/25/2024 urina lysis , dipst ick pH 7.0 Not Available [address], [address], 05/25/2024 14:33:45 05/25/20 24 05/25/2024 urina lysis , dipst ick Blood 3+ Not Available [address], [address], 05/25/2024 14:33:45 05/25/20 24 05/25/2024 urina lysis , dipst ick Specific [place] 1.020 Not Available [address], [address], 05/25/2024 14:33:45 05/25/20 24 05/25/2024 urina lysis , dipst ick Ketone Negati ve Not Available [address], [address], 05/25/2024 14:33:45 05/25/20 24 05/25/2024 urina lysis , dipst ick Bilirubin Negati ve Not Available [address], [address], 05/25/2024 14:33:45 05/25/20 24 05/25/2024 urina lysis , dipst ick Glucose Negati ve Not Available [address], [address], 05/25/2024 14:33:45 08/24/20 24 08/24/2024 patie nt healt h quest ionna pipo depre ssion asses sment * PHQ-9 negati ve Not Available [address], [address], 08/24/2024 08:00:31 10/29/20 23 08/22/2023 XR, chest No observ ation record ed. [email or web address] [address], [address], 08/23/2023 13:32:07 02/02/20 24 01/28/2024 XR, knee No observ ation record ed. [address], [address], 02/04/2024 09:45:34 02/18/20 24 02/16/2024 MRI, knee, w/o contr ast No observ ation record ed. [address], [address], 02/18/2024 13:49:29 03/27/20 24 2024 , katie rosario No observ ation record ed. [address], [address], 03/28/2024 17:38:09 Result Notes None recorded. Problems Name Problem SNOMED Code Status Onset Date Resolution Date Notes Provider Name and Address Organization Details Recorded Time Suspecte d COVID-19 455105610 Active 2020 Catherine Hernandez DO [address] [place] [address] [place], [address], [facility] 1 13:35:04 Tonsil asymmetr y 230565690 Active 2023 SUKUMAR CLINTON MD [address] [place] [address] [place], [address], [facility] 4 12:47:01 Ahsan hematuri a 598274340 Active 2023 SUKUMAR CLINTON MD [address] [place] [address] [place], [address], [facility] 4 12:47:08 Gynecoma stia 9852705 Completed 202309/11/2024 Removal Reason: resolved SUKUMAR CLINTON MD [address] [place], [address], [place] [facility] 12:47:20 Problem Notes None recorded. Procedures Surgical History None recorded. Imaging Results Imaging Date Name Status LastModified by Organiz ation Details LastModified Time 08/22/2023 XR, chest completed [email or web address] [address], [address], 08/23/2023 13:32:07 01/28/2024 XR, knee completed [address], [address], 02/04/2024 09:45:34 02/16/2024 MRI, knee, w/o contrast completed [email or web address] [address], [address], 02/18/2024 13:49:29 2024 US, breast, bilateral completed [address], [address], 03/28/2024 17:38:09 Procedure Notes None recorded. Medical Equipment None Reported. Allergies No known drug allergies Medications Not known to be on any medication Vitals Date Recorded Body weight Body mass index (BMI) Body mass index (BMI) Percentile per age and sex Body height Provider Name and Address Organization Details Last Updated DateTime 03/16/2024 85030.05 g 23.7 kg/m2 59 % 178.43 cm Rukhsana Maya R.N. [facility] 03/16/2024 11:05:55 Date Recorded Body height Body mass index (BMI) Percentile per age and sex Body mass index (BMI) Body weight Systolic blood pressure Diastolic blood pressure Provider Name and Address Organization Details Last Updated DateTime 178.43 cm 61 % 24.1 kg/m2 08100.1 1 g 116 mm[Hg] 70 mm[Hg] Sofie Jarrett RN [facility] 14:13:28 Social History Question Answer Notes LastModified by Organizat ion Details LastModified Time Are You Blind Or Do You Have Difficulty Seeing? No Information not available 06/06/2021 Are You Deaf Or Do You Have Serious Difficulty Hearing? No Information not available 06/06/2021 Have There Been Any Changes To Your Family Or Social Situation? No Information not available 12/17/2020 Hard Of Hearing Or Deaf In One Or Both Ears? No Information not available 12/17/2020 Legally Blind In One Or Both Eyes? No Information not available 12/17/2020 Parent's Marital Status Information not available 12/17/2020 Home Situation Mother Informatio n not available 12/17/2020 Siblings Taylor (F) 03/17/02 Gerardo (M) 03/29/07 Information not available 12/17/[address] [employer] Informatio n not available 08/24/2024 Parent's Name Arpit Green Lives Out Of State Information not available 12/17/2020 Parent's Name Juanis Green Hand Surgeon Information not available 12/17/2020 DSS/DCF Custody No Information not available 06/06/2021 Are You Passively Exposed To Smoke? No Information not available 12/17/2020 Are You Currently In School? Yes Information not available 06/06/2021 Sex: Unknown Functional Status None recorded. Mental Status None recorded. Family History Relationship Description Onset Age of this Age Resolved Age Notes LastModified by Organization Details LastModified Time Mother Allergy latex [email or web address] Not available 0 12/18/2020 14:18:09 Mother Hereditary spherocytosi s [email or web address] Not available 2020 14:19:04 Sister Hereditary spherocytosi s [email or web address] Not available 2020 14:19:04 Brother Hereditary spherocytosi s jtozier Not available 2020 14:19:04 Notes:Updated 08/17 Medical History Condition Response MUSCLE/ JOINT/ BONE PROBLEMS Y Immunizations Vaccine Type Date Status Note Provider Name and Address Organization Details Recorded Time DTaP 06/04/20 04 completed Sabrina Castillo R.N. null, [facility] 12/14/2020 09:09:21 DTaP 08/13/20 04 completed Annamaria DiazNRoberto null, [facility] 12/14/2020 11:11:12 DTaP 10/29/19 05 completed Annamaria DiazNRoberto null, [facility] 12/14/2020 11:11:47 DTaP 07/01/20 05 completed Annamaria DiazNRoberto null, [facility] 12/14/2020 11:12:22 DTaP 04/30/20 08 completed Annamaria DiazNRoberto null, [facility] 12/14/2020 11:12:28 Influenza, split virus, quadrivalent, preservative 09/12/20 12 completed Enrico Diaz.NRoberto null, [facility] 12/14/2020 12:04:09 Influenza, split virus, quadrivalent, preservative 07/26/20 15 completed Sabrina Castillo R.NRoberto null, [facility] 12/14/2020 12:04:15 Influenza, split virus, quadrivalent, preservative 08/26/20 18 completed Enrico Diaz.NRoberto null, [facility] 12/14/2020 12:04:20 Hep A, ped/adol, 2 dose 12/03/19 06 completed Sabrina Castillo R.NRoberto null, [facility] 12/14/2020 12:04:43 Hep A, ped/adol, 2 dose 04/15/20 06 completed Sabrina Castillo R.NRoberto null, [facility] 12/14/2020 12:04:50 Hep B, unspecified formulation 04/22/20 04 completed Enrico Diaz.NRoberto null, [facility] 12/14/2020 12:07:20 Hep B, unspecified formulation 06/04/20 04 completed Sabrina Chalifour, R.N. null, [facility] 12/14/2020 12:07:25 Hep B, unspecified formulation 08/13/20 04 [facility] 12:07:36 Hep B, unspecified formulation 04/06/20 05 completed [facility] 12:07:41 Hib, unspecified formulation 06/04/20 04 completed [facility] 12:08:01 Hib, unspecified formulation 08/13/20 04 completed [facility]om[facility] 12/14/2020 12:08:10 Hib, unspecified formulation 05/06/20 05 completed [facility] 12/14/2020 12:08:18 HPV, unspecified formulation 05/09/20 15 completed [facility] 12/14/2020 12:08:37 HPV, unspecified formulation 05/04/20 16 completed [facility] 12/14/2020 12:08:44 HPV, unspecified formulation 06/03/20 17 [facility] 12:08:55 Influenza, split virus, quadrivalent, preservative 09/30/20 04 completed [facility]/2020 12:09:26 Influenza, split virus, quadrivalent, preservative 10/29/19 05 completed [facility]/2020 12:09:33 Influenza, split virus, quadrivalent, preservative 09/01/20 05 completed Sabrina Chalifour, R.N. null, [facility] 12/14/2020 12:09:41 Influenza, split virus, quadrivalent, preservative 08/20/20 06 completed Sabrinabuck Castillo, R.N. null, [facility] 12/14/2020 12:09:53 Influenza, split virus, quadrivalent, preservative 09/13/20 09 completed Sabrina Castillo R.N. null, [facility] 12/14/2020 12:10:04 Influenza, split virus, quadrivalent, preservative 09/05/20 10 completed [facility]uck [facility] 12:10:11 meningococcal ACWY, unspecified formulation 05/09/20 15 completed [facility]uck [facility] 12/14/2020 12:10:45 meningococcal ACWY, unspecified formulation 05/01/20 20 completed Sabrina Castillo, R.N. null, [facility] 12/14/2020 12:10:54 MMR 05/06/20 05 completed [facility] 12/[facility]/2020 12:11:16 MMR 04/30/20 08 completed [facility] 12/14/2020 12:11:25 MMR 05/15/20 06 completed [facility] 12/14/2020 12:11:54 Pneumococcal conjugate PCV 13 06/04/20 04 completed [facility]uck [facility] 12:12:09 Pneumococcal conjugate PCV 13 08/13/20 04 completed [facility] 12/14/2020 12:12:17 Pneumococcal conjugate PCV 13 07/01/20 05 completed [facility] 12/14/2020 12:12:24 Pneumococcal conjugate PCV 13 12/03/19 06 completed Sabrinabuck Castillo, R.N. null, [facility] 12/14/2020 12:12:32 IPV 06/04/20 04 completed [facility]aour[facility] 12/14/2020 12:12:41 IPV 08/13/20 04 completed Sabrina [facility], [facility] 12/14/2020 12:12:57 IPV 10/29/19 05 completed Sabrina Chalifour, [facility] 12/14/2020 12:13:04 IPV 04/30/20 08 completed Sabrinabuck Castillo, [facility] 12/14/2020 12:13:09 Tdap 05/09/20 15 completed Sabrinabuck [facility]illo, [facility] 12/14/2020 12:13:36 meningococcal B, unspecified 05/01/20 20 completed Sabrinabuck Castillo, [facility] 12/14/2020 12:14:08 varicella 05/06/20 05 completed Sabrinabuck Castillo, [facility] 12/14/2020 12:15:18 varicella 04/30/20 08 completed [facility] 12/14/2020 12:15:24 Hep A, unspecified formulation 03/28/20 13 completed [facility] 06/05/2021 16:44:28 COVID-19, mRNA, LNP-S, PF, 30 mcg/0.3 mL dose 02/02/20 21 completed Lizzeth Vital R.N. null, [facility] 06/06/2021 15:12:26 COVID-19, mRNA, LNP-S, PF, 30 mcg/0.3 mL dose 02/23/20 21 completed [facility] 06/06/2021 15:12:31 Influenza, split virus, quadrivalent, PF 08/22/20 21 completed Alexandrea Klein maria r, [facility] 08/22/2021 16:26:54 Influenza, split virus, quadrivalent, PF 07/02/20 22 completed SUKUMAR CLINTON MD [address] [place] [address], , [facility] 07/09/2022 18:22:37 Influenza, split virus, trivalent, PF 08/24/20 24 cancelled patient objection SUKUMAR LCINTON MD [address] [place] [address], , [facility] 09/11/2024 12:46:12 Past Encounters Encounter ID Performer Location Encounter Start Date Encounter Closed Date Diagnosis/Indication Diagnosis SNOMED-CT Code Diagnosis ICD10 Code Diagnosis Note [id number] Dada Schaeffer MD [facility] [address] [address] 12/17/2020 08:21:50 12/17/2020 09:49:56 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 [id number] Susi King MD [address] [address] 06/06/2021 14:51:23 06/09/2021 11:12:31 Well child visit 808694607 Z00.129 Normal weight 05971688 Z 68.52 Hyperlipid emia screening 920428762 Z13.220 [id number] Catherine Hernandez DO [facility] [address] [address] 09/26/2021 12:47:06 09/29/2021 08:15:16 Suspected COVID-19 399705585 Z20.822 Viral syndrome 883378815 B34.9 [id number] SUKUMAR CLINTON MD [facility] [address] [address] 11/28/2021 10:20:15 11/28/2021 13:07:59 Dyslexia 68350549 F81.0 [id number] SUKUMAR CLINTON MD [address] [address] 07/02/2022 15:42:24 07/06/2022 08:54:36 Active immunization 01622154 Z23 Adult heal th examination 317668359 Z00.00 Normal bod y mass index 69953726 Z68.23 Protrusion of medial end of clavicle 808868942 M89.8X8 [id number] Catherine Hernandez, [address] [address] 11/09/2022 10:09:04 11/10/2022 07:13:30 Fever 514304215 R50.9 Acute pharyngitis 288154 003 J02.9 Suspected COVID-19 13157 4004 Z20.822 [id number] Dada Schaeffer MD [address] [address] 08/11/2023 15:58:55 08/11/2023 16:43:07 Left lower zone pneumonia 527626240 J18.1 [id number] Susi King MD [address] [address] 03/16/2024 10:40:46 2024 22:03:42 Blood in urine 48407344 R31.9 Gynecomastia 7943982 N62 [id number] SUKUMAR CLINTON MD [address] [address] 05/25/2024 13:43:14 05/26/2024 09:59:43 Tonsil asymmetry 807313150 J35.8 Gynecomastia 5216682 N62 Recurrent ahsan hematuria 091200905 N02.9 Acute pharyngitis 565923 003 J02.9 [id number] SUKUMAR CLINTON MD [address] [address] 08/24/2024 14:02:44 08/29/2024 18:49:59 Active immunization 95328736 Z23 Adult heal th examination 714881656 Z00.00 Diet education 38555947 Z71.3 Exercises education, guidance, and counseling 089928079 Z71.82 Normal bod y mass index 00429374 Z68.24 Screening for disorder 520176756 Z13.31 Tonsil asymmetry 6542834 03 J35.8 Ahsan hematuria 94031697 5 R31.0 Health Concerns Section Related Observation LastModified by Organization Detai ls LastModified Time None Recorded Concern Status LastModified by Organization Details LastModified Time None Recorded Advance Directives Directive None Recorded Payers Encounter Date Sequence Insurance Name Policy Number Policy Trujillo Covered Member ID Trujillo Member ID Guarantor Name 11/09/2022 1 [employer] [id number] Juanis Green MD [id number] Juanis Green 11/09/2022 2 [place] [id number] Timi Green [id number] Juanis Green 08/11/2023 1 [employer] [place] [id number] Juanis Geren MD [id number] Juanis Green 08/11/2023 2 [place] [id number] Timi Green [id number] Juanis Norma 03/16/2024 1 [employer] [id number] Juanis Green MD [id number] Juanis Green 03/16/2024 2 [place] [id number] Timi Green [id number] Juanis Green 05/25/2024 1 [employer] [place] [id number] Juanis Green MD [id number] Juanis Green 05/25/2024 2 [place] [id number] Timi Green [id number] Juanis Green 08/24/2024 1 [employer] [place] [id number] Juanis Green MD [id number] Juanis Green 08/24/2024 2 [place] [id number] Timi Green [id number] Juanis Green Notes Date Note Type Note Provider Name and Address Organization Details Recorded Time 11/09/2022 text/html RS Sick Visit Narrative HistoryReported bypatient.Notes:Pt coming in w/fever, ST, cough, congestion, and body aches x3 days.TMax 103F oral 2 days ago.No N/V/D.Ibuprofen last taken abt 2 hrs ago.At home Covid negative last night. Wednesday - afternoon - chills - felt like he has fever- sweaty and coldSat - fever 101. Catherine Hernandez, [address], [place], , [facility] 11/09/2022 18:22:26 08/11/2023 text/html RS Sick Visit Narrative HistoryReported bypatient.Notes:Pt coming in w/nasal congestion x 1 week. Feels like it affects breathing.Cough - productive at times. Green/yellow mucus.Worse at night and in AM. Doesn't wake him overnight.Afebrile. No ST.Tried mult OTCs w/o relief (Sudafed/mucinex/zqui l)cough for 1 month. no fever. Dada Schaeffer MD [address], [place], , [facility] 08/11/2023 16:42:43 03/16/2024 text/html RS Sick Visit Narrative HistoryReported bypatient.Notes:Pt coming w/lump under L nipple x2-3 week.Now feels like it is quarter sized. Has increased in size since first noticed.Tender to the touch.Feels hard. Movable under skin. SUKUMAR CLINTON MD [address], [place], , [facility] 2024 09:10:22 05/25/2024 text/html Pt here for enla rged R tonsil that was noticed 1 month ago. Did go to when sx first started and took full course of Amoxicillin w/ no relief. Denies difficulty swallowing. No pain in throat. Afebrile. No other sick sx. Energy level decreased d/t not sleeping well. Appetite slightly decreased but believes it is unrelated.No OTC meds taken recently. Gross hematuria after running long distances and L-sided gynecomastia have persisted and pt has not yet heard from subspecialists about the referrals. Also reports fatigue x 1 mo and anxiety around going back to college in Fall. Just feels he doesn't want to go back, but not for any specific reason than he [doesn't] like it. Unsure of what he wants to do as a career in future, but currently studying biomedical engineering. Has been abstaining from alcohol this summer in hope that it may improve his gynecomastia. No MJ or other drugs. No thoughts of self harm. Still able to enjoy leisure activities. SUKUMAR CLINTON MD [address] [place] [address], [place], [id number], [facility] 05/25/2024 18:31:46
== END 2024-12-26 13:25 | disposition home or self-care (01) ==
LOC: HO.US 13:24
PROVIDERS: PCP Pediatrics; Visit Provider Student in an Organized Health Care Education/Training Program
DX: R79.89 Other specified abnormal findings of blood chemistry (principal)
CPT/HCPCS: 76870

== ENCOUNTER → 2024-12-26 13:26 | Outpatient (BNV) | payer OTHER, SELFPAY | PROVIDERS: PCP Pediatrics; Visit Provider General Practice | DX: E28.1 Androgen excess (principal) | CPT/HCPCS: 76870 ==